=== PATIENT | male | born 1975 | race Caucasian/White ===

== ENCOUNTER 2016-05-18 09:57 | Emergency (ER) | payer OTHER ==
[2016-05-18] MEDS ORDERED: DUONEB (A & A) INH ONE (10:43)
--- NOTE | 2016-05-18 10:46 | PROVIDER DOCUMENTATION ---
HPI-Respiratory General - General Source: patient - History of Present Illness-Resp Onset/Duration: reports: 1 week ago Timing: reports: still present Cough Quality/Degree: reports: mild Associated Symptoms: reports: cough, wheezing. denies: shortness of breath <Kalyn Montgomery - Last Filed: 05/18/16 12:09> <Evan Babin - Last Filed: 05/18/16 12:15> - General Chief Complaint: Sinus Pain Stated Complaint: COLD SX Time Seen by Provider: 05/18/16 10:41 Allergies/Adverse Reactions: Patient Allergies Allergy/AdvReac Type Severity Reaction Status Date / Time No Known Allergies Allergy Verified 12/16/15 08:37 Home Medications: Home Medication List Medication Instructions Recorded Confirmed Last Taken Type Sulfamethoxazole/Tmp D.s. [Septra 1 each PO BID #20 tablet 12/16/15 Unknown Rx Ds] Amoxicillin [Amoxil] 875 mg PO BID #14 tablet 02/15/16 Unknown Rx Guaifenesin/Pseudoephedrne HCl 1 each PO BID #20 tab.er.12h 02/15/16 Unknown Rx [Mucinex D ER Tablet] Prednisone 20 mg PO DAILY #12 tablet 02/15/16 Unknown Rx Acetaminophen with Codeine 1 each PO Q6H PRN PRN #30 tablet 05/18/16 Unknown Rx [Tylenol with Codeine #3 Tablet] Acetaminophen with Codeine 1 each PO Q6H PRN PRN #30 tablet 05/18/16 Unknown Rx [Tylenol with Codeine #3 Tablet] Albuterol [Albuterol Neb] 2.5 mg INH Q4H PRN PRN #60 neb 05/18/16 Unknown Rx Amoxicillin 875 mg PO BID #20 tablet 05/18/16 Unknown Rx - History of Present Illness-Resp Nature of Presenting Problem: 40 yo M presents to the ER with complaint of x1 week of nasal congestion, cough , wheezing, and rib pain from coughing. States he quit smoking x3 months ago. has a hx of asthma and nebulizer at home but has not used it in years, has not had asthma problems in years. (Kalyn Montgomery) Review of Systems - Adult - REVIEW OF SYSTEMS - ADULT Constitutional: denies: chills, fever Eyes: reports: no symptoms reported Ears, Nose, Mouth & Throat: reports: other (sinius pressure). denies: ear pain Cardiovascular: denies: chest pain, palpitations Respiratory: reports: cough, wheezing. denies: shortness of breath Gastrointestinal: reports: no symptoms reported Genitourinary: reports: no symptoms reported Musculoskeletal: reports: no symptoms reported Integumentary: reports: no symptoms reported Neurological: reports: no symptoms reported Psychiatric: reports: no symptoms reported Endocrine: reports: no symptoms reported Hematologic/Lymphatic: reports: no symptoms reported Allergic/Immunologic: reports: no symptoms reported All Other Systems: Reviewed and Negative <Kalyn Montgomery - Last Filed: 05/18/16 12:09> Past History - Adult - PAST MEDICAL HISTORY-ADULT Review of Records: reports: Nursing Assessment Review, Medications Reviewed Major Childhood Illnesses: reports: denies history Cardiovascular: reports: denies history Respiratory: reports: denies history Gastrointestinal: reports: denies history Genitourinary: reports: denies history Musculoskeletal: reports: denies history Neurological: reports: denies history Psychiatric: reports: denies history Endocrine/Immune: reports: denies history Other Conditions: reports: denies history - PRIOR SURGERIES/PROCEDURES Surgical/Procedure History: reports: tonsillectomy, orthopedic (extremity) - IMMUNIZATION STATUS Childhood Immunizations: See Nurse Assessment Flu Vaccine: See Nurse Assessment <Kalyn Montgomery - Last Filed: 05/18/16 12:09> Physical Exam-General - PHYSICAL EXAM-ADULT Initial Vital Signs Reviewed: Yes - CONSTITUTIONAL General Appearance: appears well, alert, no apparent distress - EYES Eyes: PERRL/EOMI, pink conjunctivae - HEAD, EARS, NOSE, MOUTH & THROAT HENMT: normocephalic/atraumatic, frontal tenderness, maxillary tenderness - NECK Neck: non-tender, full range of motion, supple, normal inspection - RESPIRATORY Respiratory: no respiratory distress, no accessory muscle use - CARDIOVASCULAR Cardiovascular: normal peripheral pulses, regular rate, rhythm - MUSCULOSKELETAL Back Exam: no CVA tenderness, no vertebral tenderness Extremity: normal gait, normal inspection - SKIN Integumentary: normal color, warm/dry - NEUROLOGIC Neurologic: grossly normal, no motor/sensory deficits - PSYCHIATRIC Psych/Mental Status: normal mood/affect, normal thought content, normal thought process, oriented x 3 <Kalyn Montgomery - Last Filed: 05/18/16 12:09> Progress - XRAY 1 XRAY Study: Chest (negative, per radiologist) 2 XRAY Study: other (sinuses) Impression: Normal (negative, per Dr. Babin) <Kalyn Montgomery - Last Filed: 05/18/16 12:09> <Evan Babin - Last Filed: 05/18/16 12:15> - PLAN OF CARE/RESULTS Progress/Plan/Lab Results: Vital Signs Temp Pulse Resp BP Pulse Ox 05/18/16 10:58 74 20 99 05/18/16 10:03 98.9 F 72 18 147/81 97 No Known Allergies Allergy (Verified 12/16/15 08:37) Sulfamethoxazole/Tmp D.s. [Septra Ds] 1 each PO BID #20 tablet 12/16/15 Amoxicillin [Amoxil] 875 mg PO BID #14 tablet 02/15/16 Guaifenesin/Pseudoephedrne HCl [Mucinex D ER Tablet] 1 each PO BID #20 tab.er.12h 02/15/16 Prednisone 20 mg PO DAILY #12 tablet 02/15/16 Laboratory 05/18/16 11:15 WBC 10.31 RBC 4.66 L Hgb 13.1 L Hct 38.5 L MCV 82.6 MCH 28.1 MCHC 34.0 RDW Std Deviation 12.5 Plt Count 305 MPV 10.1 Immature Gran % (Auto) 0.4 Neut % (Auto) 63.2 Lymph % (Auto) 25.8 Patrick % (Auto) 8.4 Eos % (Auto) 1.7 Baso % (Auto) 0.5 Immature Gran # (Auto) 0.04 Neut # (Auto) 6.51 H Lymph # (Auto) 2.66 Patrick # (Auto) 0.87 H Eos # (Auto) 0.18 Baso # (Auto) 0.05 Orders Category Date Time Status CHEST-2 VIEWS [RAD] Stat Exams 05/18/16 10:24 Draft SINUSES CORBIN VIEW ONLY [RAD] Stat Exams 05/18/16 10:24 Taken CBC WITH DIFF [HEME] Stat Lab 05/18/16 11:15 Completed Albuterol 2.5MG/Ipratrop 0.5MG [Duoneb (A & A)] Med 05/18/16 10:43 Discontinued 3 ml INH NOW ONE Aerosol Treatments Stat Oth 05/18/16 10:43 Completed Peak Flow Stat Oth 05/18/16 10:43 Active (Kalyn Motngomery) Departure - Departure Time of Disposition Order: 12:10 Certified Medical Emergency: Emergent <Kalyn Montgomery - Last Filed: 05/18/16 12:09> - Departure Time of Disposition Order: 12:14 Certified Medical Emergency: Emergent <Evan Babin - Last Filed: 05/18/16 12:15> - Departure DIAGNOSIS: Asthmatic bronchitis Qualifiers: Asthma severity: unspecified severity Asthma complication type: uncomplicated Qualified Code(s): J45.909 - Unspecified asthma, uncomplicated Disposition: HOME 01 Condition: Stable Additional Instructions: ED Follow Up Instructions: You have been treated by a care provider in the Emergency Department. These instructions are being provided to you so you can have an understanding of how to care for yourself upon discharge. Upon discharge from the Emergency Department, you are responsible for making arrangements for follow-up care by a physician of your choice. Take all prescribed medications as directed. Return to the Emergency Department immediately for any new or worsening symptoms. You may call the Physician Referral phone number at [phone] to obtain a list of Physicians who are taking new patients. Prescriptions: Acetaminophen with Codeine [Tylenol with Codeine #3 Tablet] 1 each PO Q6H PRN PRN #30 tablet PRN Reason: Pain Acetaminophen with Codeine [Tylenol with Codeine #3 Tablet] 1 each PO Q6H PRN PRN #30 tablet PRN Reason: Pain Albuterol [Albuterol Neb] 2.5 mg INH Q4H PRN PRN #60 neb PRN Reason: sob Amoxicillin 875 mg PO BID #20 tablet Referrals: None,PCP [Primary Care Provider] - Attestation - Scribe Verification/Attestation Scribe:: Kalyn Montgomery Acting as Scribe for:: Evan Babin Scribe documention review:: This chart was documented by a scribe and accurately reflects the service the provider performed and the decisions made by the provider. <Kalyn Montgomery - Last Filed: 05/18/16 12:09> Physician Attestation
[2016-05-18 11:20] LABS: BASO% 0.5 % (0.0-0.8); EOS# 0.18 X1000 (0.0-0.7); EOS% 1.7 % (0.0-10.0); HEMATOCRIT 38.5 % (42.0-52.0); HEMOGLOBIN 13.1 g/dL (14.0-18.0); IMM GRAN# 0.04 X1000 (0.0-0.04); IMM GRAN% 0.4 % (0.0-0.5); LYMPH# 2.66 X1000 (1.2-3.4); LYMPH% 25.8 % (20.5-51.1); MANUAL DIFF NEEDED? NO; MCH 28.1 PG (27-31); MCV 82.6 FL (81-99); MONO# 0.87 X1000 (0.11-0.59); MONO% 8.4 % (1.7-9.3); MPV 10.1 FL (7.4-10.4); NEUT% 63.2 % (42.2-75.2); PLT 305 X1000 (130-400); RBC 4.66 XMIL (4.7-6.1)
[2016-05-18] MEDS ORDERED: DEPO-MEDROL IM ONE (12:09)
--- NOTE | 2016-05-18 12:09 | Diag Imaging Result Document ---
PROCEDURE NAME: CHEST-2 VIEWS - 05/18/2016 PA AND LATERAL RADIOGRAPH OF THE CHEST: COMPARISON: 02/15/2016. FINDINGS: The lungs are grossly clear. There is no discrete pleural fluid collection or evidence of pneumothorax. The cardiomediastinal silhouette and upper airway are grossly unremarkable. IMPRESSION: No evidence of acute chest pathology.
[2016-05-18 12:19] VITALS: BP 139/93
[2016-05-18] MEDS ORDERED: DEPO-MEDROL ONE (12:25)
--- NOTE | 2016-05-18 12:29 | Diag Imaging Result Document ---
PROCEDURE NAME: SINUSES BONNER VIEW ONLY - 05/18/2016 SINGLE BONNER VIEW OF THE PARANASAL SINUSES: COMPARISON: 04/29/2014. FINDINGS: The paranasal sinuses are grossly clear. There is no definite air-fluid level. The mastoid air cells appear to be clear. Surrounding bony structures are grossly intact. IMPRESSION: Essentially unremarkable Bonner view of the paranasal sinuses.
== END 2016-05-18 12:35 | disposition home or self-care (01) ==
LOC: P.ED 09:57
DX: J45.909 Unspecified asthma, uncomplicated (principal); R05 Cough; R06.2 Wheezing; J34.89 Other specified disorders of nose and nasal sinuses; R09.81 Nasal congestion; R07.81 Pleurodynia; Z87.891 Personal history of nicotine dependence
CPT/HCPCS: 36415; 70210; 71020; 85025; 94640; 96372; J1040